=== PATIENT | female | born 1985 | race Caucasian/White ===

== ENCOUNTER 2017-07-15 19:52 | Emergency (ER) | payer MEDICAID ==
[~2017-07-15] VITALS: Ht 172.7 cm; Wt 113.6 kg
[~2017-07-15 19:52] MED LIST: ALBU8.5H8 IH; ALPR-624 PO; NAPR-56 PO; NO HOME MEDS
[2017-07-15 20:07] VITALS: BP 118/75
[2017-07-15] MEDS ORDERED: IBUP-1985 PO (21:37)
== END 2017-07-15 22:05 | disposition home or self-care (01) ==
LOC: ER 19:53
DX: M23.92 Unspecified internal derangement of left knee (principal); I10 Essential (primary) hypertension; G89.29 Other chronic pain; K21.9 Gastro-esophageal reflux disease without esophagitis; Z88.0 Allergy status to penicillin; Z79.899 Other long term (current) drug therapy
CPT/HCPCS: 29505; 99283

== ENCOUNTER 2018-02-07 19:17 | Emergency (ER) | payer MEDICAID ==
[~2018-02-07] VITALS: Ht 175.3 cm; Wt 118.0 kg
[~2018-02-07 19:17] MED LIST changes: +IBUP-1985 PO
[2018-02-07 19:50] VITALS: BP 140/96
[2018-02-07] MEDS ORDERED: normal saline 1000ml 1,000 ML IV ONE (20:25)
[2018-02-07] MEDS ORDERED: ketorolac trometh. 30mg/ml inj. IV ONE (20:25)
[2018-02-07] MEDS ORDERED: LORazepam 2 mg/ml vial IV ONE (20:30)
[2018-02-07 21:09] LABS: HCG SERUM QL NEGATIVE
== END 2018-02-07 21:43 | disposition left against medical advice (07) ==
LOC: ER 19:18
DX: L03.114 Cellulitis of left upper limb (principal); F19.10 Other psychoactive substance abuse, uncomplicated; I10 Essential (primary) hypertension; K21.9 Gastro-esophageal reflux disease without esophagitis; F41.9 Anxiety disorder, unspecified; F32.9 Major depressive disorder, single episode, unspecified; F41.0 Panic disorder [episodic paroxysmal anxiety]; G89.29 Other chronic pain; Z88.0 Allergy status to penicillin; Z79.899 Other long term (current) drug therapy
CPT/HCPCS: 36415; 84703; 99284; J1885; J2060

== ENCOUNTER 2018-02-10 21:23 | Inpatient (IN) | payer MEDICAID ==
[~2018-02-10] VITALS: Ht 175.3 cm; Wt 118.2 kg
[~2018-02-10 21:23] MED LIST changes: +temazepam 15mg capsule PO PRN
[2018-02-10] MEDS ORDERED: normal saline 1000ML IV soln IV ONE (21:50)
[2018-02-10] MEDS ORDERED: clindamycin 600mg/D5W 50ml 50 ML IV ONE (21:50)
[2018-02-10] MEDS ORDERED: iohexol 300mg/ml 100ml inj. ONE (21:56)
[2018-02-10 22:35] LABS: ALANINE AMINOTRANSFERASE 36 U/L (12-78); ALBUMIN/GLOBULIN RATIO 0.8 (1.1-1.5); ALKALINE PHOSPHATASE 73 IU/L (46-116); ANION GAP 10 (8-16); ASPARTATE AMINO TRANSFERASE 27 U/L (10-37); BILIRUBIN,TOTAL 0.3 MG/DL (0.1-1.0); BLOOD UREA NITROGEN 6 MG/DL (7-18); BUN/CREATININE RATIO 9.5 (6.6-38.0); CALCIUM 8.4 MG/DL (8.5-10.1); CHLORIDE 99 MMOL/L (99-107); CREATININE 0.63 MG/DL (0.40-0.90); GLUCOSE 88 MG/DL (70-104); MAGNESIUM 1.9 MG/DL (1.5-2.4); SODIUM 137 MMOL/L (135-145); TOTAL CARBON DIOXIDE 28.3 MMOL/L (24-32); TOTAL PROTEIN 6.9 G/DL (6.4-8.2); eGFR > 90 ML/MIN
[2018-02-10] MEDS ORDERED: morphine 4 MG/ML inj SYRINge IV ONE (22:35)
[2018-02-10 22:38] LABS: PROTHROMBIN TIME 9.7 SECONDS (9.0-12.0)
[2018-02-10 22:39] LABS: PARTIAL THROMBOPLASTIN TIME 32 SECONDS (22-32)
[2018-02-10 22:55] LABS: BASOPHILS # (AUTO) 0.1 X10'3 (0-0.2); BASOPHILS % (AUTO) 0.9 % (0-1); EOSINOPHILS # (AUTO) 0.1 X10'3 (0-0.9); EOSINOPHILS % (AUTO) 1.3 % (0-6); HEMATOCRIT 33.2 % (35.0-45.0); HEMOGLOBIN 11.1 g/dl (12.0-16.0); LYMPHOCYTES # (AUTO) 1.7 X10'3 (1.1-4.8); LYMPHOCYTES % (AUTO) 24.7 % (21-51); MEAN CORPUSCULAR HEMOGLOBIN 27.1 PG (27.0-31.0); MEAN CORPUSCULAR HGB CONC 33.3 % (33.0-36.5); MEAN CORPUSCULAR VOLUME 81.4 FL (78-98); MEAN PLATELET VOLUME 7.4 FL (7.4-10.4); MONOCYTES # (AUTO) 0.4 X10'3 (0-0.9); NEUTROPHILS # (AUTO) 4.6 X10'3 (1.8-7.7); NEUTROPHILS % (AUTO) 67.1 % (42-75); PLATELET COUNT 265 X10'3 (140-440); RED BLOOD COUNT 4.08 X10'6 (4.20-5.60); RED CELL DISTRIBUTION WIDTH 12.5 % (11.5-14.5); WHITE BLOOD COUNT 6.9 X10'3 (4.5-11.0)
[2018-02-10 23:31] LABS: CLARITY,URINE CLEAR (Clear); COLOR,URINE YELLOW (Yellow); GLUCOSE, URINE NEGATIVE (Neg); KETONES,URINE NEGATIVE (Neg); LEUKOCYTE ESTERASE ,URINE NEGATIVE (Neg); NITRITES, URINE NEGATIVE (Neg); OCCULT BLOOD,URINE NEGATIVE (Neg); PH,URINE 5.5 (4.8-8.0); PROTEIN,URINE NEGATIVE (Neg); URINE HCG NEGATIVE (NEG); UROBILINOGEN,URINE 0.2 E.U/dL (0.2-1.0)
[2018-02-10 23:34] LABS: UA COLLECTION TYPE CLN CATCH MIDSTREAM
[2018-02-11] VITALS (15 sets, daily range): BP systolic 102–125; BP diastolic 55–77
[2018-02-11] MEDS ORDERED: acetaminophen 650mg rectal suppository RC PRN
[2018-02-11] MEDS ORDERED: diphenhydrAMINE 50 mg/ml inj IV PRN
[2018-02-11] MEDS ORDERED: HYDROcodone/acetaminophen 5mg/325mg tablet PO PRN
[2018-02-11] MEDS ORDERED: magnesium hydroxide 30ml (MOM) UD suspension PO PRN
[2018-02-11] MEDS ORDERED: HYDROmorphone 1 mg/ml syringe IV PRN
[2018-02-11] MEDS ORDERED: bisacodyl 10mg suppository rectal RC PRN
[2018-02-11] MEDS ORDERED: diphenhydrAMINE 25mg capsule PO PRN
[2018-02-11] MEDS ORDERED: mag hydrox/Alum hydrox/simeth 30ml oral suspension PO PRN
[2018-02-11] MEDS ORDERED: HYDROcodone/acetaminophen 10/325mg tab PO PRN
[2018-02-11] MEDS ORDERED: metoclopramide 5 mg/ml inj IV PRN
[2018-02-11] MEDS ORDERED: acetaminophen 325mg tablet PO PRN ×2
[2018-02-11] MEDS ORDERED: morphine 2 MG/ML inj. syringe IV PRN ×2
[2018-02-11] MEDS ORDERED: tetanus & diphtheria toxoid (Td) vaccine 0.5ml IMVAC ONE (00:15)
[2018-02-11] MEDS ORDERED: TETanus/Pertussis (Acell)/Diphther VAC/PF (Tdap-Adult) 0.5ml syringe IMVAC ONE (00:25)
[2018-02-11] MEDS ORDERED: vancomycin/NS 1 GM ADD-VANTAGE 250 ML IV SCH ×2 (00:30→01:30)
[2018-02-11 00:33] LABS: PHOSPHORUS 4.9 MG/DL (2.3-4.5)
[2018-02-11] MEDS: HYDROmorphone 1 mg/ml syringe IV PRN ×2 (00:33→05:38)
[2018-02-11] MEDS: normal saline 1000ml 1,000 ML IV SCH ×2 (01:24→16:23)
[2018-02-11] MEDS: clindamycin 600mg/D5W 50ml 50 ML IV SCH ×3 (03:43→14:40)
[2018-02-11 07:02] LABS: BASOPHILS % (AUTO) 0.6 % (0-1); EOSINOPHILS # (AUTO) 0.2 X10'3 (0-0.9); EOSINOPHILS % (AUTO) 2.7 % (0-6); HEMATOCRIT 35.2 % (35.0-45.0); HEMOGLOBIN 11.8 g/dl (12.0-16.0); LYMPHOCYTES # (AUTO) 2.1 X10'3 (1.1-4.8); LYMPHOCYTES % (AUTO) 31.5 % (21-51); MEAN CORPUSCULAR HEMOGLOBIN 27.3 PG (27.0-31.0); MEAN CORPUSCULAR HGB CONC 33.6 % (33.0-36.5); MEAN CORPUSCULAR VOLUME 81.4 FL (78-98); MEAN PLATELET VOLUME 7.5 FL (7.4-10.4); MONOCYTES # (AUTO) 0.5 X10'3 (0-0.9); MONOCYTES % (AUTO) 7.1 % (2-12); NEUTROPHILS # (AUTO) 3.9 X10'3 (1.8-7.7); NEUTROPHILS % (AUTO) 58.1 % (42-75); PLATELET COUNT 267 X10'3 (140-440); RED BLOOD COUNT 4.32 X10'6 (4.20-5.60); RED CELL DISTRIBUTION WIDTH 12.7 % (11.5-14.5); WHITE BLOOD COUNT 6.7 X10'3 (4.5-11.0)
[2018-02-11 07:06] LABS: ALANINE AMINOTRANSFERASE 28 U/L (12-78); ALBUMIN 2.7 G/DL (3.4-5.0); ALBUMIN/GLOBULIN RATIO 0.7 (1.1-1.5); ALKALINE PHOSPHATASE 64 IU/L (46-116); ANION GAP 8 (8-16); ASPARTATE AMINO TRANSFERASE 21 U/L (10-37); BILIRUBIN,TOTAL 0.5 MG/DL (0.1-1.0); BLOOD UREA NITROGEN 5 MG/DL (7-18); BUN/CREATININE RATIO 8.8 (6.6-38.0); CALCIUM 8.2 MG/DL (8.5-10.1); CHLORIDE 104 MMOL/L (99-107); CREATININE 0.57 MG/DL (0.40-0.90); GLUCOSE 86 MG/DL (70-104); POTASSIUM 4.2 MMOL/L (3.5-5.1); SODIUM 140 MMOL/L (135-145); TOTAL CARBON DIOXIDE 28.2 MMOL/L (24-32); TOTAL PROTEIN 6.4 G/DL (6.4-8.2); eGFR > 90 ML/MIN
[2018-02-11] MEDS ORDERED: pantoprazole 40 MG vial IV SCH (08:00)
[2018-02-11] MEDS ORDERED: vancomycin inj 1,000 MG in normal saline 250ml IV soln 250 ML IV SCH ×4 (08:00)
[2018-02-11] MEDS ORDERED: docusate sod 100mg capsule PO SCH (08:00)
[2018-02-11] MEDS ORDERED: ringers solution, lacted 1,000 ML IV SCH (12:19)
[2018-02-11] MEDS ORDERED: ondansetron/PF 4mg/2ml inj IV PRN ×2 (12:20)
[2018-02-11] MEDS ORDERED: morphine 4 MG/ML inj SYRINge IV PRN ×2 (12:20)
[2018-02-11] MEDS ORDERED: proCHLORperazine 10 MG/2 ml inj IV PRN (12:20)
[2018-02-11] MEDS ORDERED: meperidine/PF 25mg/ml syringe IV PRN ×3 (12:20)
[2018-02-11] MEDS ORDERED: midazolam 2 mg/2 ml injection ONE ×2 (12:23→12:36)
[2018-02-11] MEDS ORDERED: sevoflurane 250ml liquid IH ONE (12:30)
[2018-02-11] MEDS ORDERED: fentaNYL/PF 50MCG/1 ML 2ML syringe ONE (12:36)
[2018-02-11] MEDS ORDERED: propofol inj 20 ML IV ONE ×2 (12:37→13:13)
[2018-02-11] MEDS ORDERED: LIDOcaine 2% (20mg/ml) 5ml vial ONE (12:37)
[2018-02-11] MEDS ORDERED: ketorolac trometh. 30mg/ml inj. IV ONE (13:35)
[2018-02-11] MEDS ORDERED: CEPH-572 PO (19:25)
[2018-02-11] MEDS ORDERED: ONDA8TAB9 PO (19:25)
[2018-02-11] MEDS ORDERED: DOXY100C43 PO (19:25)
[2018-02-11] MEDS ORDERED: lactobacillus rhamnosus 10,000 MMU CELLS/CAPSULE PO SCH (20:00)
[2018-02-12] MEDS ORDERED: VANCOMYCIN LEVEL IV ONE (08:30)
== END 2018-02-11 17:17 | disposition left against medical advice (07) | DRG 344 ==
LOC: ER 21:24 → ED HOLD 23:58 → SUR 3N 02-11 00:50
PROVIDERS: ADMIT Family Medicine; ATTEND Family Medicine
PROC: BP2 Imaging, Non-Axial Upper Bones, Computerized Tomography (CT Scan) (ICD-10-PCS; 2018-02-10)
PROC: 0H9EXZZ Drainage of Left Lower Arm Skin, External Approach (ICD-10-PCS; principal; 2018-02-11 12:30)
DX: M60.001 Infective myositis, unspecified left arm (principal); E66.9 Obesity, unspecified; F41.0 Panic disorder [episodic paroxysmal anxiety]; L03.114 Cellulitis of left upper limb; I10 Essential (primary) hypertension; J45.909 Unspecified asthma, uncomplicated; K21.9 Gastro-esophageal reflux disease without esophagitis; Z53.21 Procedure and treatment not carried out due to patient leaving prior to being seen by health care provider; F11.10 Opioid abuse, uncomplicated; S50.352A Superficial foreign body of left elbow, initial encounter; L02.414 Cutaneous abscess of left upper limb; F32.9 Major depressive disorder, single episode, unspecified; F41.9 Anxiety disorder, unspecified; G89.29 Other chronic pain; M54.9 Dorsalgia, unspecified; Z87.891 Personal history of nicotine dependence; Z68.38 Body mass index [BMI] 38.0-38.9, adult; Z88.0 Allergy status to penicillin; Z79.899 Other long term (current) drug therapy
CPT/HCPCS: 36415; 73201; 80053; 81003; 81025; 83605; 83735; 84100; 84145; 85025; 85610; 85730; 87040; 87070; 87075; 87077; 87186; 90715; 93005; 96365; 96375; 99285; A6251; A6446; A7000; C9113; G0378; J1170; J1885; J2001; J2175; J2250; J2270; J2704; J3010; J3370; J3490; J7030; J7120; Q9967

== ENCOUNTER 2018-11-16 11:49 | Emergency (ER) | payer MEDICAID ==
[~2018-11-16] VITALS: Ht 172.7 cm; Wt 105.0 kg
[~2018-11-16 11:49] MED LIST changes: +ONDA8TAB9 PO; -temazepam 15mg capsule PO PRN
[2018-11-16 11:51] VITALS: BP 149/88
--- NOTE | 2018-11-16 13:42 | NUR ---
PT LWOBS AND I DID NOT SEE THE PT EITHER.
== END 2018-11-16 13:35 | disposition left against medical advice (07) ==
LOC: ER 11:50
DX: M25.562 Pain in left knee (principal); Z53.21 Procedure and treatment not carried out due to patient leaving prior to being seen by health care provider; X58.XXXA Exposure to other specified factors, initial encounter; Y93.01 Activity, walking, marching and hiking; Y92.89 Other specified places as the place of occurrence of the external cause; Y99.8 Other external cause status

== ENCOUNTER 2018-12-20 17:02 | Emergency (ER) | payer MEDICAID ==
[~2018-12-20] VITALS: Ht 172.7 cm; Wt 104.5 kg
[2018-12-20 17:18] VITALS: BP 101/64
[2018-12-20 17:43] LABS: CLARITY,URINE CLOUDY (Clear); COLOR,URINE AMBER (Yellow); GLUCOSE, URINE NEGATIVE (Neg); KETONES,URINE TRACE mg/dl (Neg); LEUKOCYTE ESTERASE ,URINE TRACE (Neg); NITRITES, URINE POSITIVE (Neg); OCCULT BLOOD,URINE TRACE-INTACT (Neg); PH,URINE 5.5 (4.8-8.0); PROTEIN,URINE 30 mg/dl (Neg); URINE HCG NEGATIVE (NEG)
[2018-12-20 18:04] LABS: UA COLLECTION TYPE CLN CATCH MIDSTREAM
[2018-12-20 18:14] LABS: WBC,URINE 0-4 /HPF (0-4)
[2018-12-20 18:17] LABS: BACTERIA,URINE 4+ /HPF (Neg); MUCUS STRANDS FEW /LPF (Neg); RBC,URINE NONE SEEN /HPF (0-2); SQUAMOUS EPITHELIAL CELL,UR FEW /LPF (FEW)
[2018-12-20] MEDS ORDERED: SULF1TAB49 PO (18:21)
[2018-12-20 18:22] LABS: HYALINE CASTS 0-3 /LPF (NEGATIVE)
--- NOTE | 2019-01-08 08:23 | NUR ---
pt called head charger after receiving a letter from the ed due to her urine culture being resistant to the prescribed abx, pt states she will return to the ed today at 1700
== END 2018-12-20 18:31 | disposition home or self-care (01) ==
LOC: ER 17:03
DX: N39.0 Urinary tract infection, site not specified (principal); I10 Essential (primary) hypertension; K21.9 Gastro-esophageal reflux disease without esophagitis; G89.29 Other chronic pain; F11.90 Opioid use, unspecified, uncomplicated; Z88.0 Allergy status to penicillin; Z79.899 Other long term (current) drug therapy
CPT/HCPCS: 81001; 81025; 87077; 87088; 87186; 99283

== ENCOUNTER 2019-01-22 21:46 | Emergency (ER) | payer MEDICAID ==
[~2019-01-22] VITALS: Ht 172.7 cm; Wt 100.0 kg
[2019-01-22 22:22] LABS: URINE HCG NEGATIVE (NEG)
[2019-01-22 22:28] LABS: CLARITY,URINE CLEAR (Clear); COLOR,URINE YELLOW (Yellow); GLUCOSE, URINE NEGATIVE (Neg); KETONES,URINE NEGATIVE (Neg); LEUKOCYTE ESTERASE ,URINE NEGATIVE (Neg); OCCULT BLOOD,URINE LARGE (Neg); PROTEIN,URINE TRACE mg/dl (Neg); UA COLLECTION TYPE CLN CATCH MIDSTREAM; UROBILINOGEN,URINE 0.2 E.U/dL (0.2-1.0)
[2019-01-22 22:29] LABS: NITRITES, URINE POSITIVE (Neg)
[2019-01-22 22:37] LABS: BACTERIA,URINE 3+ /HPF (Neg); MUCUS STRANDS MANY /LPF (Neg); SQUAMOUS EPITHELIAL CELL,UR MODERATE /LPF (FEW); WBC,URINE 0-4 /HPF (0-4)
[2019-01-22] MEDS ORDERED: CEPH250T PO (22:38)
[2019-01-22 22:52] VITALS: BP 128/80
== END 2019-01-22 22:49 | disposition home or self-care (01) ==
LOC: ER 21:46
DX: N39.0 Urinary tract infection, site not specified (principal); I10 Essential (primary) hypertension; K21.9 Gastro-esophageal reflux disease without esophagitis; G89.29 Other chronic pain; F11.90 Opioid use, unspecified, uncomplicated; Z88.0 Allergy status to penicillin
CPT/HCPCS: 81001; 81025; 87077; 87088; 87186; 99283

== ENCOUNTER 2019-05-12 11:24 | Emergency (ER) | payer MEDICAID ==
[~2019-05-12] VITALS: Ht 172.7 cm; Wt 95.6 kg
[2019-05-12 11:51] VITALS: BP 140/75
[2019-05-12] MEDS ORDERED: traMADol 50MG tablet PO ONE (12:15)
== END 2019-05-12 12:29 | disposition home or self-care (01) ==
LOC: ER 11:25
DX: M25.561 Pain in right knee (principal); I10 Essential (primary) hypertension; K21.9 Gastro-esophageal reflux disease without esophagitis; G89.29 Other chronic pain; F41.9 Anxiety disorder, unspecified; F32.9 Major depressive disorder, single episode, unspecified; F11.90 Opioid use, unspecified, uncomplicated; Z98.890 Other specified postprocedural states; Z88.0 Allergy status to penicillin; Z79.899 Other long term (current) drug therapy; W01.0XXA Fall on same level from slipping, tripping and stumbling without subsequent striking against object, initial encounter; Y93.89 Activity, other specified; Y92.89 Other specified places as the place of occurrence of the external cause; Y99.8 Other external cause status
CPT/HCPCS: 29505; 73564; 99284

== ENCOUNTER 2021-03-10 16:18 | Emergency (ER) | payer MEDICAID ==
[~2021-03-10] VITALS: Ht 172.7 cm; Wt 109.0 kg
[~2021-03-10 16:18] MED LIST changes: +ALBU8.5H17 IH; -ALBU8.5H8 IH
[2021-03-10 18:41] VITALS: BP 131/94
== END 2021-03-10 18:42 | disposition home or self-care (01) ==
LOC: ER 16:18
DX: B34.9 Viral infection, unspecified (principal); Z20.822 Contact with and (suspected) exposure to COVID-19; I10 Essential (primary) hypertension; J45.909 Unspecified asthma, uncomplicated; K21.9 Gastro-esophageal reflux disease without esophagitis; G89.29 Other chronic pain; F17.200 Nicotine dependence, unspecified, uncomplicated; Z88.0 Allergy status to penicillin; Z79.899 Other long term (current) drug therapy
CPT/HCPCS: 71045; 87502; 87503; 87635; 99284; C9803

== ENCOUNTER 2023-12-03 17:56 | Emergency (ER) | payer MEDICAID ==
[~2023-12-03] VITALS: Ht 172.7 cm; Wt 147.3 kg
[2023-12-03] MEDS ORDERED: CLIN150C2 PO (19:07)
[2023-12-03] MEDS: clindamycin 150mg capsule PO ONE (19:35)
[2023-12-03 19:37] VITALS: BP 134/81; PULSE 86; RESP 18; TEMP 98.6; O2SAT 98
== END 2023-12-03 19:38 | disposition home or self-care (01) ==
LOC: ER 17:56
DX: K02.9 Dental caries, unspecified (principal); K08.89 Other specified disorders of teeth and supporting structures; I10 Essential (primary) hypertension; J45.909 Unspecified asthma, uncomplicated; K21.9 Gastro-esophageal reflux disease without esophagitis; G89.29 Other chronic pain; M54.9 Dorsalgia, unspecified; F41.9 Anxiety disorder, unspecified; F32.A Depression, unspecified; Z88.0 Allergy status to penicillin; Z79.1 Long term (current) use of non-steroidal anti-inflammatories (NSAID); Z79.899 Other long term (current) drug therapy
CPT/HCPCS: 99283

== ENCOUNTER 2024-05-10 13:34 | Emergency (ER) | payer MEDICAID ==
[~2024-05-10] VITALS: Ht 172.7 cm; Wt 127.0 kg
[2024-05-10 13:42] VITALS: BP 142/88; PULSE 95; O2SAT 99
[2024-05-10 14:40] VITALS: RESP 16
[2024-05-10] MEDS: ketorolac trometh 15mg/ml vial 15 MG/ML ML IM ONE (14:40)
[2024-05-10 15:08] VITALS: TEMP 98.4
== END 2024-05-10 15:27 | disposition home or self-care (01) ==
LOC: ER 13:35
DX: M25.562 Pain in left knee (principal); I10 Essential (primary) hypertension; J45.909 Unspecified asthma, uncomplicated; K21.9 Gastro-esophageal reflux disease without esophagitis; F41.9 Anxiety disorder, unspecified; F32.A Depression, unspecified; Z88.0 Allergy status to penicillin; F12.90 Cannabis use, unspecified, uncomplicated
CPT/HCPCS: 73564; 96372; 99283; J1885; A6449

== ENCOUNTER 2025-01-10 11:28 | Emergency (ER) | payer MEDICAID ==
[~2025-01-10] VITALS: Ht 172.7 cm; Wt 151.4 kg
[~2025-01-10 11:28] MED LIST changes: -IBUP-1985 PO; +IBUP600T52 PO
[2025-01-10 12:04] VITALS: TEMP 97.6
[2025-01-10] MEDS ORDERED: CLIN150C2 PO (12:31)
[2025-01-10] MEDS ORDERED: IBUP-1986 PO (12:31)
--- NOTE | 2025-01-10 12:32 | Physician Documentation ---
HPI ~ General Chief Complaint: Tooth Problem Stated Complaint: TOOTH PAIN Time Seen by MD: 12:08 Primary Medical Doctor: RANDY AUGUSTINE History of Present Illness HPI Comment This is a 39-year-old female who presents with right upper dental pain and swelling patient reports that she is scheduled to have a tooth removed though this is appointment his several weeks out. Patient reports no fevers, difficulty swallowing, or difficulty breathing. Patient reports no other acute symptoms or concerns pain Medication Reconciliation Allergies: Coded Allergies: Penicillins (Unverified Allergy, Intermediate, 01/10/25) Scheduled Alprazolam* (Xanax*), 1 TAB PO QDAY PRN Clindamycin (Cleocin ), 3 CAP PO Q8H Ibuprofen (Ibuprofen), 1 TAB PO Q8H Ibuprofen (Ibuprofen), 1 TAB PO Q8H Naproxen (Naproxen), 500 MG PO Q12H Scheduled PRN Albuterol Sulfate (Proair Hfa), 2 PUFFS IH Q4H PRN for SOB or wheezing Ondansetron (Zofran Odt), 8 MG PO QID PRN for nausea Miscellaneous Medications Home Med List (No Home Medications), (Reported) Past Medical History Past Medical History: No Pertinent History, Hypertension, Asthma, GERD, Chronic Back Pain, Anxiety, Depression, Panic Disorder Past Surgical History: other Alcohol Use: None Drug Use: heroin Lives with: Family Lives In: Home Review of Systems ROS As stated above in the HPI, otherwise all systems are reviewed and negative. Physical Exam Vital Signs: Temperature: 97.6, Source: Temporal, Heart Rate: 72, Respiratory Rate: 16, BP: 146/90, Pulse Oximetry: 93, Weight: 151.400 Physical Exam VITALS: Reviewed and as above. GENERAL: Alert, nontoxic appearing, no apparent distress. HEENT: Tenderness and mild swelling to the gingiva at the base of right upper premolar, no fluctuance or drainage. No submandibular swelling, no elevation of the tongue, no drooling RESPIRATORY: No increased work of breathing, no respiratory distress, speaking in full clear sentences Progress Results/Orders Results/Orders Completed Orders - SUYAPA SANCHEZ [employer] APPLICATION ARCHITECT Ketorolac Trometh 15mg/Ml Vial (Toradol (01/10/25 12:35) Vital Signs 01/10/25 01/10/25 01/10/25 12:04 12:54 13:04 Temp 97.6 Pulse 72 72 Resp 16 16 18 B/P (MAP) 146/90 155/101 Pulse Ox 93 96 Medical Decision Making Findings This well appearing 39-year-old female presented with dental pain to the right upper premolar. Based on history and physical exam I have low clinical suspicion for peritonsillar abscess, uvulitis, deep tissue space infection of the head/neck, or impending airway compromise. There was no submandibular swelling or elevation of the tongue, the uvula was midline, patient is able to swallow fluids and secretion without difficulty, there is no increased work of breathing or noisy breathing. Remainder of physical exam was benign and patient is hemodynamically stable. Based on presentation I am concerned for odontogenic infection and antibiotic treatment with Augmentin is indicated. Pain control with non-narcotic medications is appropriate at this time. Patient is to follow up with dentist/oral surgeon as scheduled. Patient provided follow up instructions, return to care precautions, and home care instructions which she verbalized understanding of. Differential Dx:Considerations: Include: Alveolar fracture, Alveolar osteitis, ANUG, Facial Cellulitis, Periapical abscess, Peridontal abscess, Pulpitis, Tooth avulsion, Tooth eruption, Tooth Fracture, Trigeminal neuralgia, Tooth s ubluxation Departure Disposition: HOME / SELF CARE / HOMELESS Impression: Primary Impression: Toothache Condition: Improved Discharge Instructions: Dental Pain Additional Instructions: Please take the antibiotics as prescribed. You may use the prescribed ibuprofen as needed for pain starting 12 hours from now as you received an injection of Toradol which replaces this medication. Follow up as scheduled with your dentist/oral surgeon. Please follow up with your primary care provider in the next few days. Please return to the emergency department for any new or worsening concerning symptoms including but not limited to difficulty swallowing or difficulty breathing, or if you have a fever over 100.4 that does not lower with ibuprofen or Tylenol. Referrals: NO PRIMARY CARE PROVIDER (PCP) Prescriptions Ibuprofen (Ibuprofen) 800 Mg Tablet 1 TAB PO Q8H for pain for 10 Days, #30 TAB 0 Refills Prov: SUYAPA SANCHEZ 01/10/25 Clindamycin (Cleocin ) 150 Mg Capsule 3 CAP PO Q8H for 10 Days, #90 CAP Prov: SUYAPA SANCHEZ 01/10/25 Education Educated: Patient Educated regarding: diagnosis, treatment, prognosis Signature Scribe Signature: No scribe Attestation: The note accurately reflects work and decisions made by me.KAREEM Skaggs 01/11/25 10:04 SUYAPA SANCHEZ Jan 10, 2025 12:32
[2025-01-10] MEDS: ketorolac trometh 15mg/ml vial 15 MG/ML ML IM ONE (12:54)
[2025-01-10 13:04] VITALS: BP 155/101; PULSE 72; RESP 18; O2SAT 96
== END 2025-01-10 13:05 | disposition home or self-care (01) ==
LOC: ER 11:28
DX: K08.89 Other specified disorders of teeth and supporting structures (principal); Z88.0 Allergy status to penicillin; Z88.8 Allergy status to other drugs, medicaments and biological substances
CPT/HCPCS: 96372; 99283; J1885

== ENCOUNTER 2025-02-05 12:45 | Emergency (ER) | payer MEDICAID ==
[~2025-02-05] VITALS: Ht 172.7 cm; Wt 154.6 kg
[~2025-02-05 12:45] MED LIST changes: +IBUP-1986 PO
[2025-02-05 13:01] VITALS: BP 144/70; PULSE 61; RESP 18; TEMP 97.1; O2SAT 95
--- NOTE | 2025-02-05 13:50 | RADIOLOGY REPORT ---
CLINICAL INDICATION: ANKLE PAIN TECHNIQUE: 3 views of the left ankle were performed. DI ANKLE, COMPLETE(3VW MIN) Comparison: None FINDINGS/IMPRESSION: 1. Postoperative changes of left distal fibular plate and screw fixation, 2 screw fixation of the medial malleolus, and 2 syndesmotic screws. The more superior syndesmotic screw is fractured. 2. No acute fracture is identified about the left ankle. 3. [id number] osteoarthritis of the left ankle, likely posttraumatic. There are also mild degenerative changes of the subtalar joint and talonavicular joint. 4. Plantar calcaneal bone spur, os peroneum, and Achilles insertion enthesophyte incidentally noted. 5. Marked soft tissue swelling is identified, greatest medially. In the absence of recent trauma, this appearance may be due to infectious etiology.
[2025-02-05] MEDS ORDERED: IBUP-1984 PO (14:21)
--- NOTE | 2025-02-05 14:21 | Physician Documentation ---
History of Present Illness ~ Chief Complaint: Ankle pain Stated Complaint: L ANKLE PAIN Time Seen by MD: 14:09 Primary Medical Doctor: RANDY AUGUSTINE HPI 39-year-old female who presents to the emergency department for evaluation of acute on chronic left ankle pain. Patient status post hardware to the left ankle by [facility] several years ago reports last three days she has had increased pain near the surgical site. There was no signs of infection. No change in her baseline range of motion there has been no reported fever or warmth to the ankle. No other reported illness or injury. Tetanus witin 5 years: Yes Medication Reconciliation Allergies: Coded Allergies: Penicillins (Unverified Allergy, Intermediate, 01/10/25) Scheduled Alprazolam* (Xanax*), 1 TAB PO QDAY PRN Ibuprofen (Ibuprofen), 1 TAB PO Q8H Ibuprofen (Ibuprofen), 1 TAB PO Q8H Ibuprofen* (Motrin*), 400 MG PO Q8H Naproxen (Naproxen), 500 MG PO Q12H Scheduled PRN Albuterol Sulfate (Proair Hfa), 2 PUFFS IH Q4H PRN for SOB or wheezing Ondansetron (Zofran Odt), 8 MG PO QID PRN for nausea Miscellaneous Medications Home Med List (No Home Medications), (Reported) Past Medical History Past Medical History: No Pertinent History, Hypertension, Asthma, GERD, Chronic Back Pain, Anxiety, Depression, Panic Disorder Past Surgical History: other Alcohol Use: None Drug Use: heroin Lives with: Family Lives In: Home Review of Systems All Other Systems at this time: Reviewed and Negative Constitutional: Denies: chills, fever Musculoskeletal: Reports: pain; Denies: swelling, joint swelling, muscle pain Musculoskeletal Well-healed scar Physical Exam Vital Signs: RN Vital Signs have been reviewed: Yes, Temperature: 97.1, Source: Temporal, Heart Rate: 61, Respiratory Rate: 18, BP: 144/70, Pulse Oximetry: 95, Weight: 154.550 Oxygen Flow Rate: 0 General Appearance: alert, WD/WN, mild distress Head: normal inspection EENT: PERRL/EOMI Legs: normal inspection Ankles: no evidence of injury, bone tenderness, limited ROM, soft tissue tenderness, other (No warmth, cellulitis or erythema); No: abrasions/lacerations, deformity, ecchymosis, joint effusion, swelling Skin: normal color Neurologic: oriented x4, meat seafood associate II-XII nml as tested Psychiatric: normal mood/affect Progress Results/Orders Results/Orders Orders - LASHAE HOBBS Ortho Orders (02/05/25 14:21) Vital Signs 02/05/25 13:01 Temp 97.1 Pulse 61 Resp 18 B/P (MAP) 144/70 Pulse Ox 95 O2 Flow Rate 0 Medical Decision Making Additional information obtaine: family Findings Examination history consistent with acute on chronic left ankle pain likely that secondary to hardware placement. No clinical suspicion for septic joint. Patient has placing an orthopedic boot and referred to [facility]. Strict aftercare instructions provided. NSAID therapy for pain. General Diff Dx:Considerations: Include: Fracture, Malunion, Neurovascular injury Knee Diff Dx:Considerations: Include: Other (n/a) Ankle Diff Dx:Considerations: Include: Other (n/a) Foot Diff Dx:Considerations: Include: Other (n/a) Toe Diff Dx:Considerations: Include: Other (n/a) Departure Disposition: HOME / SELF CARE / HOMELESS Impression: Primary Impression: Left ankle pain Qualified Codes: M25.572 - Pain in left ankle and joints of left foot Additional Impression: left ankle pain secondary to hardware Condition: Stable Discharge Instructions: Ankle Pain Additional Instructions: Please wear Boot for comfort and support nad follow up with [facility] for definitive management Referrals: NO PRIMARY CARE PROVIDER (PCP) Prescriptions Ibuprofen* (Motrin*) 400 Mg Tablet 400 MG PO Q8H, #20 TAB Prov: LASHAE HOBBS 02/05/25 Education Educated: Patient Educated regarding: diagnosis, treatment, prognosis, need for follow up (Marcia Rios) Signature Scribe Signature: . Attestation: . LASHAE HOBBS Feb 05, 2025 14:21
== END 2025-02-05 14:32 | disposition home or self-care (01) ==
LOC: ER 12:46
DX: M25.572 Pain in left ankle and joints of left foot (principal); I10 Essential (primary) hypertension; K21.9 Gastro-esophageal reflux disease without esophagitis; F41.9 Anxiety disorder, unspecified; F32.A Depression, unspecified; F11.90 Opioid use, unspecified, uncomplicated; Z88.0 Allergy status to penicillin; Z79.899 Other long term (current) drug therapy
CPT/HCPCS: 73610; 99284; L4360

== ENCOUNTER 2025-02-16 11:56 | Emergency (ER) | payer MEDICAID ==
[~2025-02-16] VITALS: Ht 172.7 cm; Wt 152.8 kg
[~2025-02-16 11:56] MED LIST changes: +IBUP-1984 PO
[2025-02-16 12:17] VITALS: BP 144/81; PULSE 72; RESP 18; TEMP 97.6; O2SAT 97
--- NOTE | 2025-02-16 12:44 | Physician Documentation ---
History of Present Illness ~ Chief Complaint: Knee Pain Stated Complaint: KNEE PAIN Time Seen by MD: 12:41 Primary Medical Doctor: RANDY AUGUSTINE [facility] 39-year-old female presents to the emergency department reporting that her right knee gave out on her and that she has had pain ever since. Notes a history of meniscus injury to this knee in the past as well. Tetanus witin 5 years: Yes Medication Reconciliation Allergies: Coded Allergies: Penicillins (Unverified Allergy, Intermediate, 02/16/25) Scheduled Alprazolam* (Xanax*), 1 TAB PO QDAY PRN Ibuprofen (Ibuprofen), 1 TAB PO Q8H Ibuprofen (Ibuprofen), 1 TAB PO Q8H Ibuprofen* (Motrin*), 400 MG PO Q8H Naproxen (Naproxen), 500 MG PO Q12H Scheduled PRN Albuterol Sulfate (Proair Hfa), 2 PUFFS IH Q4H PRN for SOB or wheezing Ondansetron (Zofran Odt), 8 MG PO QID PRN for nausea Miscellaneous Medications Home Med List (No Home Medications), (Reported) Past Medical History Past Medical History: No Pertinent History, Hypertension, Asthma, GERD, Chronic Back Pain, Anxiety, Depression, Panic Disorder Past Surgical History: other Alcohol Use: None Drug Use: heroin Lives with: Family Lives In: Home Review of Systems ROS As stated above in the HPI, otherwise all systems are reviewed and negative. Physical Exam Vital Signs: Temperature: 97.6, Source: Oral, Heart Rate: 72, Respiratory Rate: 18, BP: 144/81, Pulse Oximetry: 97, Weight: 152.800 Oxygen Flow Rate: 0 Physical Exam General: Alert, no apparent distress. Neck: Full range of motion. Respiratory: Lungs clear, no respiratory distress. Chest: No accessory muscle use. Cardiovascular: Regular rate and rhythm, no murmurs. Gastrointestinal: Soft, nontender, nondistended. Bowels sounds present. Extremities: TTP medial right knee with no ecchymosis or hot red joint. Neurologic: Oriented x4. Psychiatric: Normal mood and affect. Skin: Normal color, warm and dry. No edema, no ecchymosis. Progress Results/Orders Results/Orders Orders - TRISH RAMIREZ LENDING ADVISOR Ortho Orders (02/16/25 ) Vital Signs 02/16/25 12:17 Temp 97.6 Pulse 72 Resp 18 B/P (MAP) 144/81 Pulse Ox 97 O2 Flow Rate 0 EKG/XRAY/CT/US/VASC/MRI Bone/Soft Tissue X-Ray (Spine) : Additional Comment [facility] [place] Gladys Meneses, [facility] [id number] DIAGNOSTIC RADIOLOGY Patient: MARGARET LANDERS Medical Record: [id number] [facility] : 1985, Age: 39 Sex: Female Location: ER Patient Status: [facility] ER Service Date/Time: 02/16/25/ 1221 Ordering Physician: BTEO FRANCO MD Exam: KNEE 3 VWS EXAM: DI KNEE 3 VWS HISTORY: KNEE PAIN RIGHT COMPARISON: DI ANKLE, COMPLETE(3VW MIN) on DOS: 02/05/25 TECHNIQUE: 4 views of the left knee were performed. FINDINGS: No acute fracture is identified about the left knee. There are tricompartment osteophytes. No evidence of significant joint effusion. IMPRESSION: 1. No acute osseous abnormality. 2. Osteoarthritis. Electronically Signed by:CLAYTON CASTILLO MD Date & Time: 02/16/25 1252 Dictated by: CLAYTON CASTILLO MD Dictation date and time: 02/16/25 1234 Primary Care Provider: NO PRIMARY CARE PROVIDER cc: BETO FRANCO MD ~ Medical Decision Making Additional information obtaine: family Findings dad accompanies her General Diff Dx:Considerations: Include: Abrasion, Contusion, Fracture, Hematoma, Laceration, Malunion, Neurovascular injury, Open fracture, Sprain, Ulcer Knee Diff Dx:Considerations: Include: Other Ankle Diff Dx:Considerations: Include: Other Foot Diff Dx:Considerations: Include: Other Toe Diff Dx:Considerations: Include: Other Departure Time of Disposition: 13:30 Disposition: 01 HOME / SELF CARE / HOMELESS Impression: Primary Impression: Knee pain Qualified Codes: M25.561 - Pain in right knee Condition: Stable Discharge Instructions: Acute Knee Pain, Adult Additional Instructions: Use the crutches and sivan wrap. You may also benefit from a knee brace if you can find one on [employer] or at a local pharmacy that fits well. Followup with primary care and request PT and ortho referrals. Return if worse. Ibuprofen per OTC labeled instructions as needed for pain. Referrals: NO PRIMARY CARE PROVIDER (PCP) Education Educated: Patient, Family Educated regarding: diagnosis, treatment, prognosis, need for follow up Signature Scribe Signature: x Attestation: The note accurately reflects work and decisions made by me.Trish Hernandez NP 02/16/25 13:35 TRISH RAMIREZ NP Feb 16, 2025 12:44
--- NOTE | 2025-02-16 12:54 | RADIOLOGY REPORT ---
EXAM: DI KNEE 3 VWS HISTORY: KNEE PAIN RIGHT COMPARISON: DI ANKLE, COMPLETE(3VW MIN) on DOS: 02/05/25 TECHNIQUE: 4 views of the left knee were performed. FINDINGS: No acute fracture is identified about the left knee. There are tricompartment osteophytes. No evidence of significant joint effusion. IMPRESSION: 1. No acute osseous abnormality. 2. Osteoarthritis.
== END 2025-02-16 14:25 | disposition home or self-care (01) ==
LOC: ER 11:57
DX: M25.561 Pain in right knee (principal); K21.9 Gastro-esophageal reflux disease without esophagitis; G89.29 Other chronic pain; F41.9 Anxiety disorder, unspecified; F32.A Depression, unspecified; F11.90 Opioid use, unspecified, uncomplicated; Z88.0 Allergy status to penicillin; Z79.899 Other long term (current) drug therapy
CPT/HCPCS: 73562; 99283; A6449